=== PATIENT | male | born 1965 | race Caucasian/White ===

== ENCOUNTER → 2017-04-03 | Outpatient (REF) | payer BC ==
[2017-04-03 18:32] LABS: TESTOSTERONE 138 NG/DL (241-827)
[2017-04-03 18:33] LABS: VITAMIN B12 LEVEL 467 PG/ML (247-911)
== END ==
LOC: M LAB REF 16:12
DX: R53.83 Other fatigue (principal); R20.8 Other disturbances of skin sensation
CPT/HCPCS: 84403

== ENCOUNTER → 2017-04-28 | Outpatient (REF) | payer BC ==
[2017-04-28 18:09] LABS: INFLUENZA A AMPLIFICATION POSITIVE (NEGATIVE); INFLUENZA B AMPLIFICATION NEGATIVE (NEGATIVE); RSV AMPLIFICATION NEGATIVE (NEGATIVE)
== END ==
LOC: M LAB REF 16:45
DX: R50.9 Fever, unspecified (principal); J06.9 Acute upper respiratory infection, unspecified
CPT/HCPCS: 87631

== ENCOUNTER → 2017-12-18 | Outpatient (REF) | payer BC ==
[2017-12-18 14:23] LABS: FERRITIN 188 NG/ML (26-388); FOLLICLE STIMULATING HORMONE 4.6 mIU/mL (1.4-18.1); IRON (FE) 164 UG/DL (65-175); LUTEINIZING HORMONE 2.9 mIU/mL (1.5-9.3); PERCENT SATURATION 52.4 % (19.7-50.0); TOTAL IRON BINDING CAPACITY 313 UG/DL (250-450)
[2017-12-19 15:36] LABS: TESTOSTERONE FREE (DIRECT) 7.1 pg/mL (7.2-24.0)
== END ==
LOC: M LAB REF 12:31
DX: F52.21 Male erectile disorder (principal); E11.65 Type 2 diabetes mellitus with hyperglycemia; E29.1 Testicular hypofunction
CPT/HCPCS: 83001

== ENCOUNTER → 2017-12-28 | Outpatient (REF) | payer BC | LOC: M LAB REF 14:06 | DX: E83.119 Hemochromatosis, unspecified (principal) | CPT/HCPCS: 81256 ==

== ENCOUNTER → 2018-04-23 | Outpatient (CLI) | payer SELFPAY ==
[~2018-04-23] MED LIST: AMLO5TAB PO; AMLO5TAB6 PO; ASPI325T PO; ATOR1TAB21 PO; Aleve OR; FLEX10TA2 PO; JANU100T PO; LANS30CA PO; LISI-542 PO; NEUR100C; NEUR300C OR; NORC5TAB PO; PANT40TA3 PO; SKEL800T5; SM I100T; SM I100T PO; TIZA2TAB OR; aleve OR; alleve PO; hydrocodone PO
--- NOTE | 2018-04-23 13:36 | REP ---
Unilateral right ribs PA chest five views History: Rib pain Comparison: 06/24/2011 The lungs are clear. The heart is normal in size. The pulmonary vasculature is normal in appearance. The bony structure is intact. Impression: No acute disease. Electronically Signed by Pankaj Daly MD 04/23/2018 01:27 P
--- NOTE | 2018-04-23 13:42 | REP ---
RIGHT ELBOW, FOUR VIEWS: HISTORY: Pain. There is no acute fracture or dislocation. The joint space is normal in appearance. IMPRESSION:There is no acute fracture or dislocation. Electronically Signed by Pankaj Daly MD 04/23/2018 01:47 P
--- NOTE | 2018-04-23 13:43 | REP ---
RIGHT WRIST, FOUR VIEWS: HISTORY. Pain. There is no acute fracture or dislocation. The joint spaces are normal in appearance. IMPRESSION:There is no acute fracture or dislocation. Electronically Signed by Pankaj Daly MD 04/23/2018 01:47 P
== END ==
LOC: M LRY 12:59
PROVIDERS: ATTEND Physician Assistant
DX: M25.521 Pain in right elbow (principal); R07.81 Pleurodynia; M25.531 Pain in right wrist

== ENCOUNTER → 2019-03-25 | Outpatient (REF) | payer BC ==
[2019-03-29 09:57] LABS: LDL DIRECT 134 mg/dL (0-99)
== END ==
LOC: M LAB REF 12:35
PROVIDERS: ATTEND Nurse Practitioner Adult Health
DX: E78.2 Mixed hyperlipidemia (principal)

== ENCOUNTER 2019-05-13 22:59 | Emergency (ER) | payer BC ==
[~2019-05-13] VITALS: Ht 175.3 cm; Wt 100.0 kg
[2019-05-14 01:24] LABS: INFLUENZA A AMPLIFICATION NEGATIVE (NEGATIVE); INFLUENZA B AMPLIFICATION NEGATIVE (NEGATIVE)
[2019-05-14] MEDS ORDERED: OSEL75CA2 PO (02:09)
[2019-05-14 02:26] VITALS: BP 141/86
--- NOTE | 2019-05-14 05:45 | ECGEPIP ---
[facility] - ED Test Date: 2019-05-13 Pat Name: SHARON REED Department: Room: - Gender: Male Dean Of Men: KATIE : 1965 Requested By: WILD Jones Order Number: [id number] Reading MD: Buck Luciano Measurements Intervals [place] Rate: 72 P: 29 CA: 134 QRS: -3 QRSD: 107 T: 12 QT: 381 QTc: 418 Interpretive Statements SINUS RHYTHM TYPE 3 BRUGADA PATTERN (NON-DIAGNOSTIC) BASELINE ARTIFACT AFFECTS INTERPRETATION Electronically Signed on 05-14-2019 5:45:35 EST by Buck Luciano
--- NOTE | 2019-05-14 08:56 | REP ---
Clinical: Cough . Comparison: 04/23/2018 . Technique: PA and lateral. Findings: The mediastinum and cardiac silhouette are normal. The lung enriquez are clear and without acute consolidation, effusion, or pneumothorax. The skeletal structures are intact and normal. Impression: 1. No acute cardiopulmonary process. Electronically Signed by Shemar Law MD 05/14/2019 08:47 A
== END 2019-05-14 02:28 | disposition home or self-care (01) ==
LOC: M ED 22:59
DX: J06.9 Acute upper respiratory infection, unspecified (principal); I10 Essential (primary) hypertension; Z79.899 Other long term (current) drug therapy

== ENCOUNTER → 2019-06-02 | Outpatient (CLI) | payer BC ==
[~2019-06-02] MED LIST changes: +OSEL75CA2 PO
--- NOTE | 2019-06-07 17:32 | SLEEPCENT ---
DATE OF PROCEDURE: 06/02/2019 ORDERED BY: Dr. Gutierrez Nocturnal polysomnography was performed for titration of pressure therapy in this patient with obstructive sleep apnea syndrome. For testing the patient was fit with a ROSTR Simplus full face mask of medium size. 4 cm of water pressure were applied to the circuit and the lights were extinguished. 7 hours and 58 minutes of data were reviewed. There were 430 minutes of sleep identified. Sleep latency was normal at 11.5 minutes. Rapid eye movement (REM) latency was normal at 61.5 minutes. Sleep architecture was good with four REM cycles. Overall sleep efficiency 91.5%. The electrocardiogram showed a sinus rhythm with an average heart rate of 50 beats per minute. EEG showed normal waveforms for awake and sleep. Respiratory events were fully palliated with continuous positive airway pressure (CPAP) at a pressure of +10 and remaining measures of sleep physiology were normal. IMPRESSION: Obstructive sleep apnea syndrome (G47.33). RECOMMENDATIONS: Nightly use of pressure therapy 10 cm of water.
== END ==
LOC: M SLEEP 19:46
PROVIDERS: ATTEND Nurse Practitioner Family
DX: G47.33 Obstructive sleep apnea (adult) (pediatric) (principal)

== ENCOUNTER → 2019-08-17 | Outpatient (REF) | payer BC, OTHER | LOC: M LAB REF 12:46 | PROVIDERS: ATTEND Nurse Practitioner Adult Health | DX: F52.21 Male erectile disorder (principal) ==

== ENCOUNTER 2020-04-03 11:55 | Observation (INO) | payer BC ==
[~2020-04-03] VITALS: Ht 175.3 cm; Wt 93.6 kg
[~2020-04-03 11:55] MED LIST changes: +AMLO1TAB24 PO; -AMLO5TAB6 PO; +PANT40TA29 PO; -PANT40TA3 PO
[2020-04-03 12:38] LABS: BASO % 0.3 % (0.0-1.0); EOS # 0.1 10^3/uL (0.0-0.5); EOS % 1.3 % (0.0-3.0); HEMATOCRIT 47.1 % (42.0-52.0); HEMOGLOBIN 16.4 g/dl (13.5-17.5); LYMPH # 1.3 10^3/uL (1.5-5.0); LYMPH % 20.6 % (24.0-44.0); MEAN CORPUSCULAR HEMOGLOBIN 32.3 pg (27.0-33.0); MEAN CORPUSCULAR HGB CONC 34.8 g/dl (32.0-36.5); MEAN CORPUSCULAR VOLUME 92.7 fl (80.0-96.0); MONO # 0.5 10^3/uL (0.0-0.8); MONO % 8.7 % (0.0-5.0); NEUTROPHILS # 4.3 10^3/uL (1.5-8.5); NEUTROPHILS % 68.8 % (36.0-66.0); PLATELET COUNT, AUTOMATED 201 10^3/uL (150-450); RED BLOOD COUNT 5.08 10^6/uL (4.30-6.10); WHITE BLOOD COUNT 6.2 10^3/uL (4.0-10.0)
[2020-04-03 12:50] LABS: APPEARANCE, URINE CLEAR (CLEAR); BACTERIA, URINE AUTO NEGATIVE (NEGATIVE); BILIRUBIN, URINE AUTO NEGATIVE (NEGATIVE); BLOOD, URINE BLOOD NEGATIVE (NEGATIVE); COLOR, URINE STRAW (YELLOW); GLUCOSE, URINE (UA) AUTO 1+ mg/dL (NEGATIVE); KETONE, URINE AUTO NEGATIVE (NEGATIVE); LEUKOCYTE ESTERASE, URINE AUTO NEGATIVE (NEGATIVE); NITRITE, URINE AUTO NEGATIVE (NEGATIVE); PROTEIN, URINE AUTO NEGATIVE (NEGATIVE); RBC, URINE AUTO 1 /HPF (0-3); SPECIFIC GRAVITY URINE AUTO 1.004 (1.002-1.035); SQUAMOUS EPITHELIAL CELL UR AU 0 /HPF (0-6); UROBILINOGEN, URINE AUTO 0.2 mg/dL (0.0-2.0); WBC, URINE AUTO 1 /HPF (0-3)
[2020-04-03 13:11] LABS: ALBUMIN 4.2 GM/DL (3.2-5.2); ALT/SGPT 52 U/L (12-78); BILIRUBIN,DIRECT 0.2 MG/DL (0.0-0.2); BILIRUBIN,TOTAL 1.2 MG/DL (0.2-1.0); BLOOD UREA NITROGEN 12 MG/DL (7-18); CALCIUM LEVEL 9.6 MG/DL (8.5-10.1); CARBON DIOXIDE LEVEL 31 MEQ/L (21-32); CHLORIDE LEVEL 104 MEQ/L (98-107); CK-MB VALUE MASS 1.6 NG/ML (<3.6); CPK CREATINE PHOSPHOKINASE 77 U/L (39-308); CREATININE FOR GFR 1.06 MG/DL (0.70-1.30); GLOMERULAR FILTRATION RATE > 60.0 (>56); GLUCOSE, FASTING 188 MG/DL (70-100); LIPASE 84 U/L (73-393); MB/CK RELATIVE INDEX 2.08 (< OR =4); POTASSIUM SERUM 3.8 MEQ/L (3.5-5.1); SODIUM LEVEL 138 MEQ/L (136-145); TOTAL PROTEIN 7.4 GM/DL (6.4-8.2); TROPONIN I < 0.02 NG/ML (< 0.10)
--- NOTE | 2020-04-03 14:37 | REP ---
INDICATION: CHEST PAIN. COMPARISON: 05/14/2019. TECHNIQUE: SINGLE PORTABLE AP VIEW OF THE CHEST WAS PERFORMED. FINDINGS: THERE IS NO ACUTE INFILTRATE OR PULMONARY EDEMA. A small nodular opacity in the left lung base is stable.. HEART IS NOT SIGNIFICANTLY ENLARGED. MEDIASTINAL SILHOUETTE IS UNREMARKABLE. THE VISUALIZED OSSEOUS STRUCTURES ARE INTACT. IMPRESSION: NO ACUTE PULMONARY DISEASE. <Electronically signed by David Valenzuela > 04/03/20 [id number]
[2020-04-03] MEDS ORDERED: ASPIRIN 81 MG CHEW TABLET PO ONE (14:45)
[2020-04-03] MEDS ORDERED: amLODIPine 5 MG TAB PO ONE (14:45)
[2020-04-03] MEDS ORDERED: ISOVUE-370 76% 100ML VIAL As Ordered ONE (15:00)
--- NOTE | 2020-04-03 15:20 | REP ---
INDICATION: htn chest pain r/o dissection COMPARISON: None. TECHNIQUE: Axial contrast enhanced images from the thoracic inlet to the upper abdomen using pulmonary embolus technique with multiplanar re-formations. 75 ml Isovue 370 intravenous contrast material administered without complication. This CT examination was performed using the following dose reduction techniques: Automated exposure control, adjustment of mA and/or kv according to the patient's size, and use of iterative reconstruction technique. FINDINGS: Satisfactory enhancement of the pulmonary vasculature is achieved and no filling defects are identified to suggest pulmonary embolus. Further evaluation of the mediastinum demonstrates normal thoracic aorta, heart and pericardium. The bilateral lung enriquez are well aerated and without consolidation, pleural effusion or pneumothorax. Minimal posterior basilar dependent changes are suggested. Tracheobronchial tree is patent. No nodule or mass lesion is identified. No adenopathy noted. Surrounding musculoskeletal structures intact IMPRESSION: No evidence for pulmonary embolus. No significant acute mediastinal or pleural parenchymal process. <Electronically signed by Shemar Law > 04/03/20 [id number]
[2020-04-03] MEDS ORDERED: LABETALOL 100MG/20ML VIAL IV STA (17:29)
--- NOTE | 2020-04-03 17:41 | ECGEPIP ---
[facility] - ED Test Date: 2020-04-03 Pat Name: SHARON REED Department: Room: - Gender: Male General Agent: : 1965 Requested By: NATHEN Preston Order Number: [id number] Reading MD: Sherly Howell Measurements Intervals [place] Rate: 81 P: 28 ID: 135 QRS: -5 QRSD: 84 T: 18 QT: 398 QTc: 462 Interpretive Statements SINUS RHYTHM NSTTW abnormalities SIMILAR 05/12/19 Electronically Signed on 04-03-2020 17:41:03 EST by Sherly Howell
[2020-04-03] MEDS ORDERED: hydrALAZINE 20MG/ML 1ML VIAL (J0360 PER 20MG) IV PRN (18:00)
[2020-04-03] MEDS ORDERED: ROSU5TAB5 PO (18:49)
[2020-04-03 18:50] LABS: CK-MB VALUE MASS 1.3 NG/ML (<3.6); CPK CREATINE PHOSPHOKINASE 69 U/L (39-308); MB/CK RELATIVE INDEX 1.88 (< OR =4); TROPONIN I < 0.02 NG/ML (< 0.10)
[2020-04-03] MEDS ORDERED: CENT50TA PO (18:51)
[2020-04-03] MEDS ORDERED: ACET1TAB55 PO (18:51)
[2020-04-03 18:59] LABS: RSV AMPLIFICATION NEGATIVE (NEGATIVE)
[2020-04-03] MEDS ORDERED: lisinopriL 5 MG TAB PO ONE (19:00)
--- NOTE | 2020-04-03 19:15 | HPEPDOC ---
[facility] Medical History & Physical Date of Admission Apr 03, 2020 Date of Service: Apr 03, 2020 History and Physical CHIEF COMPLAINT: "I didn't feel right." HISTORY OF PRESENT ILLNESS: 54 y/o male w pmh of medical noncompliance with medications, HTN, DM2, dyslipidemia, obesity BMI 32.2, anxiety, hemochromatosis, OA, GERD, hernia repair, ETOH abuse 18 beers/day.back surgeries ran out of blood pressure medications about 1.5 weeks ago, and noncompliant with low salt diet presents to the ER with c/o "not feeling right," chest tightness in the left anterior chest w/o radiation/ diaphoresis/n/v/feeling of impending doom/lightheadedness/dizziness/sob/PND/orthopnea, lasting for a few hours from 8:30am to noon, "feeling foggy" while at work. Pt checked his blood pressure and was 180/100mmHg at work without headache but with slightly blurred vision. He took his home lisinopril and norvasc, but had persistent symptoms. He also c/o tooth pain and abscess in the left upper mandible to be address by Dr. Reyes at [facility] tomorrow for extraction, but had not taken any pain meds. He had a stress test 2 years ago with no angiogram or stent needed. CT chest: no dissection. In the ER, he was give iv labetalol with sbp decreasing from 200 to 160 mmHg and hr 60mmHg. EKG: no acute st elevation, card vicente negative. Hospitalist was asked to admit for htn urgency due to noncompliance w meds. PAST MEDICAL HISTORY: Hemochromatosis Anxiety. Multiple concussions from playing football. Systemic osteoarthritis. Tfu-sgpeube-ojixvlbik diabetes. Hypertension. Hypercholesterolemia. PAST SURGICAL HISTORY: L5 laminectomy 2006 and 2013. Previous right inguinal hernia repair. CURRENT MEDICATIONS: SEE BELOW ALLERGIES: No known drug allergies. 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 He has two adult children and one brother. His mother is still living. He is a never smoker. EtOH use is 12-16 beers on weekends. FAMILY HISTORY: Father cad mi age43 mother w perforated diverticular abscess 75 alive ROS:PER HPI 12 PT ROS OTHERWISE NEGATIVE PHYSICAL EXAM: VITALS : SEE BELOW GEN:no distress. aaox 3. HEENT:face symmetric tongue midline poor dentition left upper molar slightly tender w/o purulence no cervical LAD or JVD LUNGS;CTAB AEBE no w/r/r HEART:s1s2 rrr nondisplaced pmi ABD:obese soft nt nd +bs x 4 quadrants EXT:no c/c/e LABS/MICRO/IMAGING : SEE BELOW ASSESSMENT: 54 y/o male w pmh of medical noncompliance with medications, HTN, DM2, dyslipidemia, obesity BMI 32.2, anxiety, hemochromatosis, OA, GERD, hernia repai r, ETOH abuse 18 beers/day.back surgeries ran out of blood pressure medications about 1.5 weeks ago, and noncompliant with low salt diet presents to the ER with c/o "not feeling right," chest tightness in the left anterior chest w/o radiation/ diaphoresis/n/v/feeling of impending doom/lightheadednes s/dizziness/sob/PND/orthopnea, lasting for a few hours from 8:30am to noon, "feeling foggy" while at work. Pt checked his blood pressure and was 180/100mmHg at work without headache but with slightly blurred vision. He took his home lisinopril and norvasc, but had persistent symptoms. He also c/o tooth pain and abscess in the left upper mandible to be address by Dr. Reyes at [facility] tomorrow for extraction, but had not taken any pain meds. He had a stress test 2 years ago with no angiogram or stent needed. CT chest: no dissection. In the ER, he was give iv labetalol with sbp decreasing from 200 to 160 mmHg and hr 60mmHg. EKG: no acute st elevation, [facility] due to noncompliance w meds. Hypertensive urgency -due to noncompliance w meds -hr 60's after iv labetalol -resume norvasc and lisinopril. increase norvasc to 10mg total dose daily and lisinopril to 20mg total dose daily -noncompliant w low salt diet -2gram sodium Chest pain -due to uncontrolled HTN -check card vicente q6hrs -asa, lipitor, prn morphine and nitro -serial ekg Hemochromatosis -outpt fu Left upper tooth pain -r/o abscess -check orthopantogram -has appt w dentist Dr. Reyes tomorrow, needs to be dc home early -pen v k 500 mg qid ETOH abuse -admits to heavy use -ciwa protocol DM2 -consistent carbs diet -insulin ss w coverage Dyslipidemia -resume statin GERD -PPI Chronic back pain no acute issues dispo: early dc due to dentist appt in late morning. Vital Signs Vital Signs Date Time Temp Pulse Resp B/P (MAP) Pulse Ox O2 Delivery O2 Flow Rate FiO2 04/03/20 17:40 64 201/119 04/03/20 17:01 16 95 Room Air 04/03/20 11:57 98.1 Laboratory Data Labs 24H Laboratory Tests 2 04/03/20 12:25: Immature Granulocyte % (Auto) 0.3, Neutrophils (%) (Auto) 68.8H, Lymphocytes (%) (Auto) 20.6L, Monocytes (%) (Auto) 8.7H, Eosinophils (%) (Auto) 1.3, Basophils (%) (Auto) 0.3, Neutrophils # (Auto) 4.3, Lymphocytes # (Auto) 1.3L, Monocytes # (Auto) 0.5, Eosinophils # (Auto) 0.1, Basophils # (Auto) 0.0, Nucleated Red Blood Cells % (auto) 0.0, Anion Gap 3L, Glomerular Filtration Rate > 60.0, Calcium Level 9.6, Total Bilirubin 1.2H, Direct Bilirubin 0.2, Aspartate Amino Transf (AST/SGOT) 19, Alanine Aminotransferase (ALT/SGPT) 52, Alkaline Phosphatase 54, Total Creatine Kinase 77, Creatine Kinase MB 1.6, Creatine Kinase MB Relative Index 2.08, Troponin I < 0.02, Total Protein 7.4, Albumin 4.2, Albumin/Globulin Ratio 1.3, Lipase 84 04/03/20 12:28: POC Troponin I (Misc) 0.01 04/03/20 12:29: Urine Color STRAW, Urine Appearance CLEAR, Urine pH 7.0, Urine Specific [place] 1.004, Urine Protein NEGATIVE, Urine Glucose (Auto)(UA) 1+H, Urine Ketones (Auto) NEGATIVE, Urine Blood NEGATIVE, Urine Nitrite NEGATIVE, Urine Bilirubin NEGATIVE, Urine Urobilinogen 0.2, Urine Leukocyte Esterase (Auto) NEGATIVE, Urine WBC (Auto) 1, Urine RBC (Auto) 1, Urine Hyaline Casts (Auto) 0, Urine Ray teria (Auto) NEGATIVE, Urine Squamous Epithelial Cells 0, Urine Sperm (Auto) 04/03/20 18:05: CBC/BMP Laboratory Tests 04/03/20 12:25 Home Medications Scheduled Amlodipine Besylate (Amlodipine Besylate) 5 Mg Tab, 5 MG PO DAILY Lansoprazole (Lansoprazole) 30 Mg Cap, 30 MG PO DAILY Lisinopril (Lisinopril) 5 Mg Tab, 5 MG PO DAILY Multivit with Iron,Minerals (Centravites 50 Plus) 1 Each Tablet, 1 TAB PO DAILY Rosuvastatin Calcium (Rosuvastatin Calcium) 5 Mg Tablet, 5 MG PO DAILY Sitagliptin Phosphate (Januvia) 100 Mg Tab, 100 MG PO DAILY Scheduled PRN Acetaminophen (Acetaminophen) 325 Mg Tablet, 325 MG PO Q4H PRN for PAIN Allergies Coded Allergies: No Known Allergies (Verified , 06/19/05) A-FIB/CHADSVASC A-FIB History Current/History of A-Fib/PAF?: No Current PO Anticoag Therapy: No Age/Risk Factor Scoring CHADSVASC: CHADSVASC Response (Comments) Value Age Risk Factor Age < 65 years old 0 Gender Risk Factor Male 0 Hx of CHF No 0 Hx of HTN Yes 1 Hx of Stroke/TIA/or VTE No 0 Hx of Diabetes Yes 1 Hx of Vascular Disease No 0 Total 2 Treatment Treatment ordered: NONE ZACHARY LEIGH MD Apr 03, 2020 18:59
[2020-04-03] MEDS ORDERED: AMLO10TA PO (19:24)
[2020-04-03] MEDS ORDERED: LISI10TA4 PO (19:24)
[2020-04-03] MEDS ORDERED: PENI500T PO (19:24)
[2020-04-03] MEDS: lisinopriL 10 MG TAB PO SCH (19:29)
[2020-04-03] MEDS ORDERED: GLUCOSE 4GM CHEW TABLET PO PRN (19:30)
[2020-04-03] MEDS ORDERED: PILL CUTTER 1 EACH XX PRN (19:30)
[2020-04-03] MEDS ORDERED: GI COCKTAIL 50ML BTL(HYOSCYAMINE/MAALOX/LIDOCAINE VISCOUS)(1:3:1) PO PRN (19:30)
[2020-04-03] MEDS ORDERED: OXAZEPAM 10 MG CAP PO PRN (19:30)
[2020-04-03] MEDS ORDERED: MORPHINE 2 MG/ML 1ML VIAL (J2270) IV PRN (19:30)
[2020-04-03] MEDS ORDERED: GLUCAGON INJ 1MG VIAL SC PRN (19:30)
[2020-04-03] MEDS ORDERED: DEXTROSE 50% 50 ML SYRINGE IV PRN (19:30)
[2020-04-03] MEDS ORDERED: NITROGLYCERIN 0.4 MG SUBL TABLET SL PRN (19:30)
[2020-04-03] MEDS ORDERED: LORazepam 2 MG/ML VIAL IV PRN (19:30)
[2020-04-03] MEDS: amLODIPine 5 MG TAB PO SCH (21:00)
[2020-04-03] MEDS ORDERED: HumaLOG INSULIN (NovoLOG) PER UNIT SC SCH (21:00)
[2020-04-03] MEDS ORDERED: LABETALOL 100 MG TAB PO SCH (22:00)
[2020-04-04] VITALS (7 sets, daily range): BP systolic 127–135; BP diastolic 76–81
[2020-04-04 00:38] LABS: CK-MB VALUE MASS < 1.0 NG/ML (<3.6); CPK CREATINE PHOSPHOKINASE 55 U/L (39-308); MB/CK RELATIVE INDEX 1.82 (< OR =4); TROPONIN I < 0.02 NG/ML (< 0.10)
[2020-04-04] MEDS: PENICILLIN V POTASSIUM 500 MG TAB PO SCH ×2 (00:55→09:24)
[2020-04-04] MEDS ORDERED: ACETAMINOPHEN TAB 650MG DOSE (2X325MG) PO PRN (03:15)
[2020-04-04 06:35] LABS: HEMATOCRIT 45.5 % (42.0-52.0); HEMOGLOBIN 15.5 g/dl (13.5-17.5); MEAN CORPUSCULAR HEMOGLOBIN 32.4 pg (27.0-33.0); MEAN CORPUSCULAR HGB CONC 34.1 g/dl (32.0-36.5); MEAN CORPUSCULAR VOLUME 95.2 fl (80.0-96.0); PLATELET COUNT, AUTOMATED 188 10^3/uL (150-450); RED BLOOD COUNT 4.78 10^6/uL (4.30-6.10); WHITE BLOOD COUNT 6.4 10^3/uL (4.0-10.0)
[2020-04-04 07:13] LABS: BLOOD UREA NITROGEN 13 MG/DL (7-18); CARBON DIOXIDE LEVEL 30 MEQ/L (21-32); CHLORIDE LEVEL 104 MEQ/L (98-107); CHOLESTEROL LEVEL 155 MG/DL (<200); CHOLESTEROL RISK RATIO 3.229 (<5); CK-MB VALUE MASS < 1.0 NG/ML (<3.6); CPK CREATINE PHOSPHOKINASE 51 U/L (39-308); CREATININE FOR GFR 0.99 MG/DL (0.70-1.30); GLOMERULAR FILTRATION RATE > 60.0 (>56); GLUCOSE, FASTING 155 MG/DL (70-100); HDL CHOLESTEROL 48 MG/DL (>40); LDL CHOLESTEROL 74 MG/DL (<100); MB/CK RELATIVE INDEX 1.96 (< OR =4); NON-HDL-C 107 MG/DL; POTASSIUM SERUM 4.3 MEQ/L (3.5-5.1); SODIUM LEVEL 140 MEQ/L (136-145); TRIGLYCERIDES LEVEL 166 MG/DL (<150); TROPONIN I < 0.02 NG/ML (< 0.10)
[2020-04-04 07:21] LABS: HEMOGLOBIN A1c 6.2 %
--- NOTE | 2020-04-04 07:26 | ECGEPIP ---
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
[2020-04-04] MEDS ORDERED: HumaLOG INSULIN (NovoLOG) PER UNIT SC SCH (07:30)
--- NOTE | 2020-04-04 08:26 | DS.PDOC ---
Discharge Summary General Date of Admission Apr 03, 2020 at 11:56 Date of Discharge 04/04/20 Discharge Summary DISCHARGE DIAGNOSES: Hypertensive Urgency Medical Noncompliance-not taking his blood pressure medications Chest pain ruled out [place] Tooth Pain DM2 Dysplipidemia Chronic back pain GERD Hemochromatosis ETOH Abuse DISCHARGE MEDICATIONS: see below DISCHARGE INSTRUCTIONS: check your blood pressure before taking your blood pressure medications. PCP fu appt within 5 days of discharge for blood pressure check. You may continue your home medications if your blood pressure is <130/80. You may take your higher dose of norvasc and lisinopril if your blood pressure is >130/80. Call your doctor for blood pressure>150/90. HISTORY OF PRESENT ILLNESS: 54 y/o male w pmh of medical noncompliance with medications, HTN, DM2, dyslipidemia, obesity BMI 32.2, anxiety, hemochromatosis, OA, GERD, hernia repair, ETOH abuse 18 beers/day.back surgeries ran out of blood pressure medications about 1.5 weeks ago, and noncompliant with low salt diet presents to the ER with c/o "not feeling right," chest tightness in the left anterior chest w/o radiation/ diaphoresis/n/v/feeling of impending doom/li ghtheadedness/dizziness/sob/PND/orthopnea, lasting for a few hours from 8:30am to noon, "feeling foggy" while at work. Pt checked his blood pressure and was 180/100mmHg at work without headache but with slightly blurred vision. He took his home lisinopril and norvasc, but had persistent symptoms. He also c/o tooth pain and abscess in the left upper mandible to be address by Dr. Reyes at [facility] tomorrow for extraction, but had not taken any pain meds. He had a stress test 2 years ago with no angiogram or stent needed. CT chest: no dissection. In the ER, he was give iv labetalol with sbp decreasing from 200 to 160 mmHg and hr 60mmHg. EKG: no acute st elevation, card vicente negative. Hospitalist was asked to admit for htn urgency due to noncompliance w meds. HOSPITAL COURSE: Hypertensive urgency -due to noncompliance w meds -hr 60's after iv labetalol -resume norvasc and lisinopril. increase norvasc to 10mg total dose daily and lisinopril to 20mg total dose daily -noncompliant w low salt diet -2gram sodium Chest pain -due to uncontrolled HTN -check card vicente q6hrs -asa, lipitor, prn morphine and nitro -serial ekg Hemochromatosis -outpt fu Left upper tooth pain -check orthopantogram -has appt w dentist Dr. Reyes tomorrow, needs to be dc home early -pen v k 500 mg qid ETOH abuse -admits to heavy use -ciwa protocol DM2 -consistent carbs diet -insulin ss w coverage Dyslipidemia -resume statin GERD -PPI Chronic back pain no acute issues DISCHARGE PHYSICAL EXAM: VITALS : SEE BELOW GEN:no distress. aaox 3. no conversational dyspnea no pallor or icterus HEENT:face symmetric tongue midline poor dentition left upper molar slightly tender w/o purulence no cervical LAD or JVD LUNGS;CTAB AEBE no w/r/r HEART:s1s2 rrr nondisplaced pmi ABD:obese soft nt nd +bs x 4 quadrants no rebound or guarding EXT:no c/c/e LABS/MICRO/IMAGING : SEE BELOW TIME SPENT ON DISCHARGE: 30 MIN Vital Signs/I&Os Vital Signs Date Time Temp Pulse Resp B/P (MAP) Pulse Ox O2 Delivery O2 Flow Rate FiO2 04/04/20 07:44 56 127/81 04/04/20 07:42 96.7 20 95 Room Air I&O- Last 24 Hours up to 6 AM 04/04/20 06:00 Intake Total 60 ml Output Total 0 ml Balance 60 ml Laboratory Data Labs 24H Laboratory Tests 2 04/03/20 12:25: Immature Granulocyte % (Auto) 0.3, Neutrophils (%) (Auto) 68.8H, Lymphocytes (%) (Auto) 20.6L, Monocytes (%) (Auto) 8.7H, Eosinophils (%) (Auto) 1.3, Basophils (%) (Auto) 0.3, Neutrophils # (Auto) 4.3, Lymphocytes # (Auto) 1.3L, Monocytes # (Auto) 0.5, Eosinophils # (Auto) 0.1, Basophils # (Auto) 0.0, Nucleated Red Blood Cells % (auto) 0.0, Anion Gap 3L, Glomerular Filtration Rate > 60.0, Calcium Level 9.6, Total Bilirubin 1.2H, Direct Bilirubin 0.2, Aspartate Amino Transf (AST/SGOT) 19, Alanine Aminotransferase (ALT/SGPT) 52, Alkaline Phosphatase 54, Total Creatine Kinase 77, Creatine Kinase MB 1.6, Creatine Kinase MB Relative Index 2.08, Troponin I < 0.02, Total Protein 7.4, Albumin 4.2, Albumin/Globulin Ratio 1.3, Lipase 84 04/03/20 12:28: POC Troponin I (Misc) 0.01 04/03/20 12:29: Urine Color STRAW, Urine Appearance CLEAR, Urine pH 7.0, Urine Specific [place] 1.004, Urine Protein NEGATIVE, Urine Glucose (Auto)(UA) 1+H, Urine Ketones (Auto) NEGATIVE, Urine Blood NEGATIVE, Urine Nitrite NEGATIVE, Urine Bilirubin NEGATIVE, Urine Urobilinogen 0.2, Urine Leukocyte Esterase (Auto) NEGATIVE, Urine WBC (Auto) 1, Urine RBC (Auto) 1, Urine Hyaline Casts (Auto) 0, Urine Bacteria (Auto) NEGATIVE, Urine Squamous Epithelial Cells 0, Urine Sperm (Auto) 04/03/20 18:05: Total Creatine Kinase 69, Creatine Kinase MB 1.3, Creatine Kinase MB Relative Index 1.88, Troponin I < 0.02, Coronavirus (COVID-19)(PCR) NEGATIVE, Influenza Type A (RT-PCR) NEGATIVE, Influenza Type B (RT-PCR) NEGATIVE, Respiratory Syncytial Virus (PCR) NEGATIVE 04/03/20 23:42: Bedside Glucose (Misc Panel) 161H 04/04/20 00:01: Total Creatine Kinase 55, Creatine Kinase MB < 1.0, Creatine Kinase MB Relative Index 1.82, Troponin I < 0.02 04/04/20 06:29: Total Creatine Kinase 51, Creatine Kinase MB < 1.0, Creatine Kinase MB Relative Index 1.96, Troponin I < 0.02, Nucleated Red Blood Cells % (auto) 0.0, Anion Gap 6L, Glomerular Filtration Rate > 60.0, Estimated Mean Plasma Glucose 131H, Hemoglobin A1c 6.2, Calcium Level 9.0, Triglycerides Level 166H, Total Cholesterol 155, LDL Cholesterol 74, Non-HDL Cholesterol (LDL + VLDL) 107, Total HDL Cholesterol 48, Cholesterol/HDL Ratio 3.229 CBC/BMP Laboratory Tests 04/03/20 12:25 04/04/20 06:29 FSBS Laboratory Tests Test 04/03/20 23:42 Range/Units Bedside Glucose (Misc Panel) 161 70-105 MG/DL Discharge Medications Scheduled Amlodipine Besylate (Norvasc) 10 Mg Tablet, 10 MG PO DAILY Lansoprazole (Lansoprazole) 30 Mg Cap, 30 MG PO DAILY, (Reported) Lisinopril (Lisinopril) 10 Mg Tablet, 10 MG PO BID Multivit with Iron,Minerals (Centravites 50 Plus) 1 Each Tablet, 1 TAB PO DAILY, (Reported) Penicillin V Potassium (Penicillin V Potassium) 500 Mg Tablet, 500 MG PO QID Rosuvastatin Calcium (Rosuvastatin Calcium) 5 Mg Tablet, 5 MG PO DAILY, (Repor sherri) Sitagliptin Phosphate (Januvia) 100 Mg Tab, 100 MG PO DAILY, (Reported) Scheduled PRN Acetaminophen (Acetaminophen) 325 Mg Tablet, 325 MG PO Q4H PRN for PAIN, (Reported) Allergies Coded Allergies: No Known Allergies (Verified , 06/19/05) ZACHARY LEIGH MD Apr 04, 2020 08:26
[2020-04-04] MEDS: lisinopriL 10 MG TAB PO SCH (08:30)
[2020-04-04] MEDS: amLODIPine 5 MG TAB PO SCH (08:31)
[2020-04-04] MEDS ORDERED: SITagliptin 50 MG TAB (JANUVIA) PO SCH (09:00)
[2020-04-04] MEDS ORDERED: OMEPRAZOLE 20 MG CAP PO SCH (09:00)
[2020-04-04] MEDS ORDERED: ROSUVASTATIN 10 MG TAB (CRESTOR) PO SCH (09:00)
== END 2020-04-04 09:45 | disposition home or self-care (01) ==
LOC: M ED 11:55 → M ED INP 11:56 → M RR INP 04-04 00:27
PROVIDERS: ADMIT General Practice; ATTEND General Practice
DX: I16.0 Hypertensive urgency (principal); Z91.14 Patient's other noncompliance with medication regimen; R07.9 Chest pain, unspecified; E11.9 Type 2 diabetes mellitus without complications; E78.00 Pure hypercholesterolemia, unspecified; I10 Essential (primary) hypertension; K21.9 Gastro-esophageal reflux disease without esophagitis; K08.89 Other specified disorders of teeth and supporting structures; M54.9 Dorsalgia, unspecified; E83.110 Hereditary hemochromatosis; F10.10 Alcohol abuse, uncomplicated; E66.9 Obesity, unspecified; F41.9 Anxiety disorder, unspecified; Z79.899 Other long term (current) drug therapy; Z79.84 Long term (current) use of oral hypoglycemic drugs
CPT/HCPCS: 36415; 71045; 71275; 80048; 80061; 80076; 81001; 82550; 82553; 83036; 83690; 84484; 85025; 85027; 87631; 93005; 93041; 94760; 96374; 99285; Q9967

== ENCOUNTER → 2022-03-12 | Outpatient (REF) | payer BC ==
[~2022-03-12] MED LIST changes: +ACET1TAB55 PO; +AMLO10TA PO; +CENT50TA PO; -LISI-542 PO; +LISI10TA22 PO; +LISI5TAB11 PO; +METF500T13 PO; +PENI500T PO; +ROSU5TAB5 PO
== END ==
LOC: M LAB REF 13:09
PROVIDERS: ATTEND Registered Nurse
DX: R10.11 Right upper quadrant pain (principal)

== ENCOUNTER → 2023-05-19 | Outpatient (CLI) | payer BC ==
[~2023-05-19] MED LIST changes: +GASTROGRAFIN SOLUTION 30ML As Ordered ONE; +ISOVUE-370 76% 100ML VIAL As Ordered ONE
== END ==
LOC: M RAD 15:24
PROVIDERS: ATTEND Internal Medicine
DX: R10.11 Right upper quadrant pain (principal)
CPT/HCPCS: 74177; Q9963; Q9967

== ENCOUNTER → 2023-06-17 | Outpatient (CLI) | payer BC ==
[~2023-06-17] MED LIST changes: -GASTROGRAFIN SOLUTION 30ML As Ordered ONE; -ISOVUE-370 76% 100ML VIAL As Ordered ONE
== END ==
LOC: M RAD 08:38
PROVIDERS: ATTEND Physician Assistant
DX: K70.0 Alcoholic fatty liver (principal)

== ENCOUNTER → 2023-08-10 | Outpatient (CLI) | payer BC ==
[~2023-08-10] MED LIST changes: +ROSU5TAB40 PO; -ROSU5TAB5 PO
== END ==
LOC: M SLEEP 20:00
PROVIDERS: ATTEND Nurse Practitioner Family
DX: G47.33 Obstructive sleep apnea (adult) (pediatric) (principal)

== ENCOUNTER → 2024-08-09 | Outpatient (CLI) | payer BC ==
[~2024-08-09] MED LIST changes: +AMLO-751 PO; -AMLO10TA PO; -ROSU5TAB40 PO; +ROSU5TAB49 PO
== END ==
LOC: M WUC 14:16
PROVIDERS: ATTEND Physician Assistant
DX: M25.521 Pain in right elbow (principal); M77.01 Medial epicondylitis, right elbow

== ENCOUNTER → 2025-03-13 | Outpatient (REF) | payer BC ==
[2025-03-13 14:22] LABS: IRON (FE) 94.0 UG/DL (65-175); PERCENT SATURATION 29.1 % (19.7-50.0)
== END ==
LOC: M LAB REF 12:26
PROVIDERS: ATTEND Nurse Practitioner Family
DX: E83.119 Hemochromatosis, unspecified (principal)